=== PATIENT | male | born 1960 | race Caucasian/White ===

== ENCOUNTER 2021-02-22 15:27 | Emergency (ER) | payer MEDICAID ==
[~2021-02-22] VITALS: Ht 177.8 cm; Wt 80.0 kg
[2021-02-22 15:42] VITALS: BP 162/117
== END 2021-02-22 19:06 | disposition left against medical advice (07) ==
LOC: ER 15:27
DX: R56.9 Unspecified convulsions (principal); Z53.21 Procedure and treatment not carried out due to patient leaving prior to being seen by health care provider
CPT/HCPCS: 93005; 99283